=== PATIENT | female | born 1995 | race American Indian/Alaskan Native ===

== ENCOUNTER 2023-05-10 09:59 | Outpatient (CLI) | payer OTHER | END 2023-05-10 10:03 | disposition home or self-care (01) | LOC: RX STUDY 09:59 | PROVIDERS: ATTEND Student in an Organized Health Care Education/Training Program | DX: N97.9 Female infertility, unspecified (principal) ==

== ENCOUNTER 2023-08-29 06:00 | Day surgery (SDC) | payer OTHER ==
[2023-08-27 12:55] LABS: HEMATOCRIT 39.6 % (36.0-45.00); HEMOGLOBIN 12.8 g/dL (12.0-15.00); MEAN CELL VOLUME 83.3 fL (80.00-100.00); MEAN CORPUSCULAR HGB CONC 32.4 g/dl (32.0-36.0); PLATELET COUNT 302 K/uL (150-450); RED BLOOD COUNT 4.76 M/uL (4.00-6.00); RED CELL DISTRIBUTION WIDTH 13.3 % (11.5-14.5)
[2023-08-27 12:56] LABS: URINE APPEARANCE Clear; URINE BILIRRUBIN Negative (NEGATIVE); URINE BLOOD Moderate; URINE COLOR Yellow; URINE GLUCOSE Negative (NEGATIVE); URINE LEUKOCYTE Negative; URINE NITRATE Negative; URINE PROTEIN 30 (NEGATIVE); URINE UROBILINOGEN 0.2 E.U./dl
[2023-08-27 13:00] LABS: URINE BACTERIA 376.7 uL (0.0-1933); URINE EPITHELIAL CELLS 16.6 uL (0.0-38.8); URINE RBC 107.9 uL (0.0-20.8); URINE WBC 25.5 uL (0.0-23.2)
[2023-08-27 13:41] LABS: ALBUMIN 3.6 gm/dL (3.4-5.0); BILIRUBIN TOTAL 0.25 mg/dL (0.3-1.2); CALCIUM 8.7 mg/dL (8.5-10.1); CREATININE SERUM 0.71 mg/dL (0.55-1.02); GFR 96.66; GLOBULINA 4.1 G/DL (2.4-3.5); POTASSIUM 3.68 mEq/L (3.5-5.1); TOTAL PROTEIN 7.7 gm/dL (6.4-8.2); TSH 1.59 uIU/mL (0.358-3.74)
[2023-08-27 13:42] LABS: INR 0.96; PARTIAL THROMBOPLASTIN TIME 28.3 SECONDS (22.0-34.0); PROTHROMBIN TIME 10.1 SECONDS (9.0-11.5)
[~2023-08-29] VITALS: Ht 165.1 cm; Wt 65.8 kg
[2023-08-29] MEDS ORDERED: PERCOCET 5-3251 EACH PO (09:57)
[2023-08-29] MEDS ORDERED: COLACE100 MG PO (09:57)
[2023-08-29] MEDS ORDERED: SIMETHICONE80 MG PO (09:57)
== END 2023-08-29 16:20 | disposition home or self-care (01) ==
LOC: CIR.AMB 06:00
PROVIDERS: ATTEND Student in an Organized Health Care Education/Training Program
DX: N70.11 Chronic salpingitis (principal); Z30.2 Encounter for sterilization; R10.2 Pelvic and perineal pain; Z88.1 Allergy status to other antibiotic agents